=== PATIENT | female | born 1965 | race Caucasian/White ===

== ENCOUNTER 2022-08-20 10:15 | Observation (INO) | payer OTHER ==
[2022-08-20 13:40] LABS: Bilirubin Neg (Negative); Blood, Urine 10 (Negative); Clarity Clear (Clear); Glucose, Urine (Dipstick) Normal (Negative); Ketone, Urine Negative (Negative); Leukocyte 100 (Negative); Nitrite Negative (Negative); Protein, Urine (Dipstick) Negative (Neg-Trace); Specific Gravity, Urine 1.015 (1.005-1.030); Urobilinogen Normal mg/dL (Less than 2)
[2022-08-20 13:46] LABS: #Basophils 0.1 10x3/uL (0.0-0.2); #Eosinphils 0.1 10x3/uL (0.0-0.5); #Monocytes 0.6 10x3/uL (0.0-1.1); #Neutrophils 3.8 10x3/uL (1.5-8.4); %Basophils 1.2 % (0.0-2.0); %Eosinophils 2.1 % (0.0-6.0); %Lymphocytes 28.4 % (18.0-47.0); %Monocytes 9.2 % (0.0-10.0); %Neutrophils 58.5 % (40.0-75.0); Hemoglobin 14.1 g/dL (12.0-15.5); Mean Corpuscular HGB CONC 34.4 g/dL (32.0-36.0); Mean Corpuscular Hemoglobin 31.5 pg (27.0-33.0); Mean Corpuscular Volume 91.7 fl (81.6-98.3); Mean Platelet Volume 9.4 fl (7.4-10.4); Platelet Count 315 10x3/uL (150-450); RBC Distribution Width 12.5 % (11.5-14.5); Red Blood Cell (RBC) Count 4.47 10x6/uL (3.90-5.03); White Blood Cell (WBC) Count 6.5 10x3/uL (3.5-10.5)
[2022-08-20 14:05] LABS: INR-International Normal Ratio 0.9
[2022-08-20 14:11] LABS: Anion Gap 16 mmol/L (10-20); BUN (Urea Nitrogen) 13 mg/dL (9.8-20.1); Calc. Creatinine Clearance 0 mL/min (70-130); Calcium 9.5 mg/dL (7.8-10.44); Carbon Dioxide 24 mmol/L (22-29); Chloride 103 mmol/L (98-107); Estimated GFR 97; Glucose 114 mg/dL (70-105); Potassium 4.1 mmol/L (3.5-5.1); Sodium 139 mmol/L (136-145)
[2022-08-25] MEDS ORDERED: Vancomycin (BATCH) 1.5 GRAM/300 ML BAG ONE (07:10)
[2022-08-25] MEDS ORDERED: Tranexamic Acid 1,000 MG/10 ML VIAL ONE ×2 (07:10→12:35)
[2022-08-25] MEDS ORDERED: Sodium Chloride 0.9% 100 ML ONE ×2 (07:10→09:31)
[2022-08-25 08:33] LABS: SARS-CoV-2 NAA Rapid Test Not Detected (NotDetected)
[2022-08-25] MEDS ORDERED: Fentanyl 100 MCG/2 ML VIAL ONE (08:34)
[2022-08-25] MEDS ORDERED: Ropivacaine 0.5% HCl/PF (150 MG/30 ML VIAL) ONE ×2 (08:34→10:08)
[2022-08-25] MEDS ORDERED: Midazolam HCl 2 mg/2 ml Vial ONE (08:34)
[2022-08-25] MEDS ORDERED: Ondansetron PF 4 MG/2 ML Vial ONE ×2 (08:34→10:08)
[2022-08-25] MEDS ORDERED: Scopolamine 1.5 mg/72 hour Patch ONE (08:47)
[2022-08-25] MEDS ORDERED: CEFAZOLIN 2 GM VIAL ONE (09:31)
[2022-08-25] MEDS ORDERED: Bupivacaine 0.25% HCL 30 ML VIAL ONE (09:31)
[2022-08-25] MEDS ORDERED: Fentanyl 100 MCG/2 ML VIAL IV PRN (10:02)
[2022-08-25] MEDS ORDERED: Dexamethasone 20 MG/5 ML VIAL ONE (10:08)
[2022-08-25] MEDS ORDERED: Ketorolac Tromethamine 30 MG/ML VIAL ONE (10:08)
[2022-08-25] MEDS ORDERED: ePHEDrine 50 MG/ML VIAL ONE (10:08)
[2022-08-25] MEDS ORDERED: PROPOFOL 200 MG/20 ML VIAL ONE (10:08)
[2022-08-25] MEDS ORDERED: Promethazine HCl 25 MG/ML VIAL IM PRN ×3 (10:10→10:59)
[2022-08-25] MEDS ORDERED: diphenhydrAMINE 25 MG CAP PO PRN (10:10)
[2022-08-25] MEDS ORDERED: Acetaminophen 325 MG TAB PO PRN (10:10)
[2022-08-25] MEDS ORDERED: Ondansetron PF 4 MG/2 ML Vial IVP PRN ×2 (10:10→10:15)
[2022-08-25] MEDS ORDERED: Zolpidem Tartrate 5 MG TAB PO PRN ×2 (10:10→10:15)
[2022-08-25] MEDS ORDERED: fentaNYL PF 100 MCG/2 ML SYRINGE ONE (10:14)
[2022-08-25] MEDS ORDERED: Tranexamic Acid 1,000 MG in Sodium Chloride 0.9% 100 ML IVPB SCH (10:15)
[2022-08-25] MEDS ORDERED: traMADol HCl 50 MG TAB PO PRN ×2 (10:15)
[2022-08-25] MEDS ORDERED: Ropivacaine 0.2% 550 ML 550 ML NERVE BLCK SCH (10:15)
[2022-08-25] MEDS ORDERED: Meperidine HCl/PF 25 MG/ML VIAL SLOW IVP PRN (10:59)
[2022-08-25] MEDS ORDERED: HYDROmorphone 2 MG/ML VIAL SLOW IVP PRN (10:59)
[2022-08-25] MEDS ORDERED: Promethazine HCl 25 MG/ML VIAL IVPB PRN (10:59)
[2022-08-25] MEDS ORDERED: FENTANYL 50 MCG/ML 1 ML VIAL ONE (12:05)
[2022-08-25] MEDS ORDERED: HYDROmorphone 0.5 MG/0.5 ML SYRINGE ONE ×2 (12:20→12:36)
[2022-08-25] MEDS ORDERED: HYDROmorphone 2 MG/ML VIAL ONE (12:36)
[2022-08-25 13:54] VITALS: BMI 31.8
[2022-08-25] MEDS: Ketorolac Tromethamine 30 MG/ML VIAL IVP SCH ×2 (14:18→17:19)
[2022-08-25] MEDS: Sodium Chloride 0.9% 1,000 ML IV SCH (14:19)
[2022-08-25] MEDS: HYDROcodone/Acetaminophen 10/325 mg Tablet PO PRN ×3 (14:19→22:54)
[2022-08-25] MEDS ORDERED: Fluticasone Propionate Nasal Spray 16 gm Bottle NASAL PRN (15:48)
[2022-08-25] MEDS: CEFAZOLIN 2 GM in Sodium Chloride 0.9% 100 ML IVPB SCH (17:19)
[2022-08-25] MEDS ORDERED: Vancomycin HCl 1.5 GM in Sodium Chloride 0.9% 250 ML 300 ML IVPB SCH (19:00)
[2022-08-25] MEDS: Ferrous Gluconate 324 MG TAB PO SCH (21:47)
[2022-08-25] MEDS: Senokot S 8.6-50 MG TAB PO SCH (21:47)
[2022-08-25] MEDS: Aspirin 81 mg Enteric Coated Tablet PO SCH (21:47)
[2022-08-26] MEDS: Ketorolac Tromethamine 30 MG/ML VIAL IVP SCH ×4 (00:07→17:59)
[2022-08-26] MEDS: Sodium Chloride 0.9% 1,000 ML IV SCH ×3 (00:08→16:33)
[2022-08-26] MEDS: CEFAZOLIN 2 GM in Sodium Chloride 0.9% 100 ML IVPB SCH (01:57)
[2022-08-26] MEDS: HYDROcodone/Acetaminophen 10/325 mg Tablet PO PRN ×5 (02:47→20:26)
[2022-08-26 05:24] LABS: Hemoglobin 11.3 g/dL (12.0-16.0); Mean Corpuscular HGB CONC 34.1 g/dL (32.0-36.0); Mean Corpuscular Hemoglobin 33.4 pg (27.0-31.0); Mean Corpuscular Volume 97.8 fl (78.0-98.0); Mean Platelet Volume 7.6 fL (7.4-10.4); Platelet Count 242 thou/uL (130-400); RBC Distribution Width 11.6 % (11.5-14.5); Red Blood Cell (RBC) Count 3.39 mill/uL (4.20-5.40); White Blood Cell (WBC) Count 12.6 thou/uL (4.8-10.8)
[2022-08-26] MEDS: Senokot S 8.6-50 MG TAB PO SCH ×2 (08:22→20:26)
[2022-08-26] MEDS: Aspirin 81 mg Enteric Coated Tablet PO SCH ×2 (08:23→20:26)
[2022-08-26] MEDS: Multivitamin W/ Minerals 1 TAB PO SCH (08:23)
[2022-08-26] MEDS: Loratadine 10 MG TAB PO SCH (08:23)
[2022-08-26] MEDS: Ferrous Gluconate 324 MG TAB PO SCH ×2 (08:24→20:26)
[2022-08-26] MEDS: Valsartan 80 MG TAB PO SCH (08:27)
[2022-08-26] MEDS: Hydrochlorothiazide 25 MG TAB PO SCH (08:27)
[2022-08-26] MEDS ORDERED: Calcium Carbonate 600 MG TAB PO SCH (09:00)
[2022-08-26] MEDS ORDERED: Cholecalciferol 1,000 UNITS (25 MCG) TAB PO SCH (09:00)
[2022-08-26] MEDS ORDERED: Rosuvastatin 5 MG TAB PO SCH (09:00)
[2022-08-26] MEDS ORDERED: Escitalopram Oxalate 20 mg Tablet PO SCH (09:00)
[2022-08-27] MEDS: HYDROcodone/Acetaminophen 10/325 mg Tablet PO PRN ×3 (00:25→09:45)
[2022-08-27] MEDS: Ketorolac Tromethamine 30 MG/ML VIAL IVP SCH ×2 (00:25→05:20)
[2022-08-27] MEDS: Sodium Chloride 0.9% 1,000 ML IV SCH (03:48)
[2022-08-27] MEDS ORDERED: Fluticasone Propionate Nasal Spray 16 gm Bottle NASAL PRN ×2 (06:08→06:12)
[2022-08-27 06:52] LABS: Hemoglobin 9.4 g/dL (12.0-16.0); Mean Corpuscular Hemoglobin 32.4 pg (27.0-31.0); Mean Corpuscular Volume 98.2 fl (78.0-98.0); Mean Platelet Volume 7.6 fL (7.4-10.4); Platelet Count 204 thou/uL (130-400); RBC Distribution Width 11.8 % (11.5-14.5); White Blood Cell (WBC) Count 8.1 thou/uL (4.8-10.8)
[2022-08-27] MEDS ORDERED: Escitalopram Oxalate 20 mg Tablet PO SCH (09:00)
[2022-08-27] MEDS ORDERED: Cholecalciferol 1,000 UNITS (25 MCG) TAB PO SCH ×2 (09:00)
[2022-08-27] MEDS ORDERED: Cetirizine HCl 10 MG TAB PO SCH (09:00)
[2022-08-27] MEDS ORDERED: Calcium Carbonate 600 MG TAB PO SCH (09:00)
[2022-08-27] MEDS ORDERED: Rosuvastatin 5 MG TAB PO SCH (09:00)
[2022-08-27] MEDS: Valsartan 80 MG TAB PO SCH (09:39)
[2022-08-27] MEDS: Hydrochlorothiazide 25 MG TAB PO SCH (09:40)
[2022-08-27] MEDS: Multivitamin W/ Minerals 1 TAB PO SCH (09:40)
[2022-08-27] MEDS: Ferrous Gluconate 324 MG TAB PO SCH (09:40)
[2022-08-27] MEDS: Senokot S 8.6-50 MG TAB PO SCH (09:41)
[2022-08-27] MEDS: Loratadine 10 MG TAB PO SCH (09:41)
[2022-08-27] MEDS: Aspirin 81 mg Enteric Coated Tablet PO SCH (09:41)
[2022-08-27 12:04] VITALS: BP 105/69; TEMP 98.2
== END 2022-08-27 12:06 | disposition home or self-care (01) ==
LOC: INTOOBSV 08-25 06:10 → SURG A 08-25 06:10 → SURG B 08-25 14:19
PROVIDERS: ADMIT Orthopaedic Surgery; ATTEND Orthopaedic Surgery
PROC: 0SRC0J9 Replacement of Right Knee Joint with Synthetic Substitute, Cemented, Open Approach (ICD-10-PCS; principal; 2022-08-25)
DX: M17.11 Unilateral primary osteoarthritis, right knee (principal); E78.5 Hyperlipidemia, unspecified; I10 Essential (primary) hypertension; Z87.891 Personal history of nicotine dependence; Z79.899 Other long term (current) drug therapy; Z20.822 Contact with and (suspected) exposure to COVID-19
CPT/HCPCS: 36415; 80048; 81003; 85025; 85027; 85610; 86850; 86900; 86901; 87081; 96374; 96375; 96376; A4306; C1713; C1776; G0378; J1100; J1170; J1885; J2250; J2405; J2704; J2795; J3010; J3370; J3490; J7050; S0020; U0002

== ENCOUNTER 2022-08-20 12:53 | Outpatient (CLI) | payer OTHER | END 2022-08-20 12:54 | disposition home or self-care (01) | LOC: LABBT 12:53 | PROVIDERS: ATTEND Orthopaedic Surgery | DX: Z01.818 Encounter for other preprocedural examination (principal); M17.11 Unilateral primary osteoarthritis, right knee | CPT/HCPCS: 71046; 93005; 93010 ==

== ENCOUNTER 2025-05-21 07:06 | Observation (INO) | payer BC ==
[2025-05-21 07:38] LABS: #Basophils 0.07 10x3/uL (0.0-0.2); #Eosinophils 0.55 10x3/uL (0.0-0.7); #Monocytes 0.81 10x3/uL (0.11-0.59); #Neutrophils 8.82 10x3/uL (1.40-6.50); %Basophils 0.6 % (0.0-1.0); %Eosinophils 4.9 % (0.0-10.0); %Lymphocytes 9.2 % (21.0-51.0); %Monocytes 7.1 % (0.0-10.0); %Neutrophils 77.8 % (42.0-75.0); Hematocrit 31.8 % (36.0-47.0); Hemoglobin 11.4 g/dL (12.0-16.0); Mean Corpuscular Hemoglobin 31.7 pg (27.0-31.0); Mean Corpuscular Volume 88.3 fL (78.0-98.0); Platelet Count 306 10x3/uL (130-400); Red Blood Cell (RBC) Count 3.60 mill/uL (4.20-5.40); White Blood Cell (WBC) Count 11.34 10x3/uL (4.8-10.8)
[2025-05-21] MEDS ORDERED: Magnesium 2 GM/50 ML BAG (IN WATER) ONE (07:54)
[2025-05-21] MEDS ORDERED: Pantoprazole 40 MG VIAL ONE (07:54)
[2025-05-21] MEDS ORDERED: Famotidine/PF 20 mg/2ml Vial ONE (07:54)
[2025-05-21 08:06] LABS: Troponin I Less than 0.010 ng/mL (< 0.028)
[2025-05-21 08:15] LABS: ALT (SGPT) 21 U/L (Less than 34); AST (SGOT) 26 U/L (11-34); Albumin 3.7 g/dL (3.1-4.5); Alkaline Phosphatase 136 U/L (40-110); Anion Gap 14 mmol/L (10-20); BUN (Urea Nitrogen) 12 mg/dL (9.8-20.1); Bilirubin, Total 0.8 mg/dL (0.3-1.2); Calc. Creatinine Clearance 0 mL/min (70-130); Calcium 8.6 mg/dL (7.8-10.44); Carbon Dioxide 20 mmol/L (22-29); Chloride 99 mmol/L (98-107); Globulin 3.0 g/dL (2.4-3.5); Glucose 128 mg/dL (70-105); Lipase 20 U/L (8-78); Magnesium 1.5 mg/dL (1.6-2.6); Potassium 2.6 mmol/L (3.5-5.1); Sodium 130 mmol/L (136-145)
[2025-05-21] MEDS ORDERED: NS 0.9% w/ 20 MEQ KCL 0 ML ONE (08:54)
[2025-05-21] MEDS ORDERED: Potassium Chloride 20 MEQ (100 mL) BAG ONE (08:56)
[2025-05-21] MEDS ORDERED: Iopamidol 370 76% 100 ML VIAL ONE (09:26)
[2025-05-21] MEDS ORDERED: Calcium Carbonate 500 MG ChewTAB PO PRN (09:47)
[2025-05-21] MEDS ORDERED: Senokot S 8.6-50 MG TAB PO PRN (09:47)
[2025-05-21] MEDS ORDERED: NS 0.9% w/ 20 MEQ KCL 1,000 ML/1,000 ML BAG IV SCH (10:00)
[2025-05-21 11:35] VITALS: BMI 29.0
[2025-05-21] MEDS: Potassium Chloride 20 MEQ in Premix 1 BAG IVPB SCH (11:36)
[2025-05-21 11:42] LABS: Glucose, Urine (Dipstick) Normal (Negative); Leukocyte Negative Leu/uL (Negative); Protein, Urine (Dipstick) Negative (Neg-Trace)
[2025-05-21 11:43] LABS: Specific Gravity, Urine Greater than 1.050 (1.002-1.036)
[2025-05-21 11:49] LABS: Cocaine Metabolite Screen Negative (Negative); THC/Cannabinoid Screen Negative (Negative); Tricyclic Screen Negative (Negative)
[2025-05-21] MEDS: Acetaminophen 325 MG TAB PO PRN (13:12)
[2025-05-21] MEDS: NS 0.9% w/ 40 MEQ KCL 1,000 ML IV SCH (13:13)
[2025-05-21 14:39] LABS: Magnesium 2.2 mg/dL (1.6-2.6); Potassium 3.4 mmol/L (3.5-5.1)
[2025-05-21] MEDS: Aspirin 81 mg Enteric Coated Tablet PO SCH (20:42)
[2025-05-21] MEDS: Famotidine 20 MG TAB PO SCH (20:42)
[2025-05-21] MEDS: Melatonin 3 MG TAB PO PRN (20:42)
[2025-05-21] MEDS: Cyclobenzaprine 10 MG TAB PO PRN (20:42)
[2025-05-21] MEDS: Famotidine/PF 20 mg/2ml Vial SLOW IVP SCH (20:43)
[2025-05-22 05:32] LABS: #Basophils 0.06 10x3/uL (0.0-0.2); #Eosinophils 0.54 10x3/uL (0.0-0.7); #Monocytes 0.67 10x3/uL (0.11-0.59); #Neutrophils 5.50 10x3/uL (1.40-6.50); %Basophils 0.7 % (0.0-1.0); %Eosinophils 6.3 % (0.0-10.0); %Lymphocytes 20.8 % (21.0-51.0); %Monocytes 7.8 % (0.0-10.0); %Neutrophils 64.2 % (42.0-75.0); Hematocrit 32.3 % (36.0-47.0); Hemoglobin 11.1 g/dL (12.0-16.0); Mean Corpuscular Hemoglobin 32.1 pg (27.0-31.0); Mean Corpuscular Volume 93.4 fL (78.0-98.0); Platelet Count 260 10x3/uL (130-400); Red Blood Cell (RBC) Count 3.46 mill/uL (4.20-5.40); White Blood Cell (WBC) Count 8.57 10x3/uL (4.8-10.8)
[2025-05-22 06:04] LABS: ALT (SGPT) 21 U/L (Less than 34); AST (SGOT) 23 U/L (11-34); Albumin 3.5 g/dL (3.1-4.5); Alkaline Phosphatase 126 U/L (40-110); Anion Gap 11 mmol/L (10-20); BUN (Urea Nitrogen) 9 mg/dL (9.8-20.1); Bilirubin, Total 0.6 mg/dL (0.3-1.2); Calc. Creatinine Clearance 154 mL/min (70-130); Calcium 8.2 mg/dL (7.8-10.44); Carbon Dioxide 18 mmol/L (22-29); Chloride 110 mmol/L (98-107); Globulin 2.8 g/dL (2.4-3.5); Glucose 105 mg/dL (70-105); Magnesium 2.0 mg/dL (1.6-2.6); Potassium 3.8 mmol/L (3.5-5.1); Sodium 135 mmol/L (136-145)
[2025-05-22] MEDS: Rosuvastatin 5 MG TAB PO SCH (09:29)
[2025-05-22] MEDS: Enoxaparin 40 MG (0.4 mL) SYRINGE SC SCH (09:29)
[2025-05-22] MEDS: Valsartan 80 MG TAB PO SCH (09:29)
[2025-05-22] MEDS ORDERED: Cyclobenzaprine 10 MG TAB PO PRN (10:50)
[2025-05-22 12:03] VITALS: TEMP 97.3
[2025-05-22] MEDS: HYDROcodone/Acetaminophen 10/325 mg Tablet PO PRN (12:28)
[2025-05-22 12:49] VITALS: BMI 29.0
[2025-05-22 13:54] VITALS: BP 120/55
== END 2025-05-22 15:00 | disposition home or self-care (01) ==
LOC: ERS 07:06 → 2NO 09:38
PROVIDERS: ADMIT Hospitalist; ATTEND Family Medicine
DX: E87.6 Hypokalemia (principal); E78.5 Hyperlipidemia, unspecified; E87.1 Hypo-osmolality and hyponatremia; E86.1 Hypovolemia; E83.42 Hypomagnesemia; E66.9 Obesity, unspecified; I10 Essential (primary) hypertension; F10.10 Alcohol abuse, uncomplicated; Y90.0 Blood alcohol level of less than 20 mg/100 ml; Z68.42 Body mass index [BMI] 45.0-49.9, adult; Z96.652 Presence of left artificial knee joint; Z90.49 Acquired absence of other specified parts of digestive tract; Z90.89 Acquired absence of other organs; Z90.710 Acquired absence of both cervix and uterus; Z79.899 Other long term (current) drug therapy
CPT/HCPCS: 36415; 70450; 70496; 70498; 80053; 80306; 80307; 81003; 83690; 83735; 84100; 84484; 85025; 93005; 96372; 96374; 96375; 96376; G0378; J1308; J1650; J2470; J3475; J3480; Q9967

== ENCOUNTER 2025-06-07 11:55 | Inpatient (IN) | payer BC ==
[2025-06-06 11:40] VITALS: BMI 29.2
[2025-06-07] MEDS ORDERED: CEFAZOLIN 2 GM VIAL ONE (12:51)
[2025-06-07] MEDS ORDERED: Vancomycin 1 GM/200 ML (FROZEN) BAG ONE (12:51)
[2025-06-07] MEDS ORDERED: Bupivacaine 0.25% HCL 30 ML VIAL ONE (14:17)
[2025-06-07] MEDS ORDERED: PROPOFOL 60 ML ONE (14:48)
[2025-06-07] MEDS ORDERED: fentaNYL PF 100 MCG/2 ML SYRINGE ONE (14:48)
[2025-06-07] MEDS ORDERED: PHENYLEPHRINE-NS 100 MCG/ML 10 ML SYRINGE ONE (15:05)
[2025-06-07] MEDS ORDERED: Ondansetron PF 4 MG/2 ML Vial ONE (15:40)
[2025-06-07] MEDS ORDERED: Ketorolac Tromethamine 30 MG (1 mL) VIAL ONE (15:55)
[2025-06-07] MEDS ORDERED: diphenhydrAMINE 25 MG CAP PO PRN (15:59)
[2025-06-07] MEDS ORDERED: Ondansetron PF 4 MG/2 ML Vial IVP PRN (15:59)
[2025-06-07] MEDS ORDERED: Famotidine 20 MG TAB PO PRN (16:01)
[2025-06-07] MEDS ORDERED: HYDROmorphone 0.5 MG/0.5 ML SYRINGE ONE (16:11)
[2025-06-07 16:21] LABS: RBC Count-Automated (BF) Greater than 890000 /cu.mm; WBC/Nucleated-Auto (BF) 716 /cu.mm
[2025-06-07 16:39] LABS: Fluid, Glucose 58.0 mg/dL (Not Available); Fluid, Protein 6.2 g/dL (Not Available)
[2025-06-07 17:20] LABS: BF Segmented Neutrophils 91 %; Cell Count Non Hematic 6 %
[2025-06-07] MEDS: HYDROcodone/Acetaminophen 10/325 mg Tablet PO PRN (17:22)
[2025-06-07] MEDS ORDERED: Aspirin 81 mg Enteric Coated Tablet PO SCH (21:00)
[2025-06-07] MEDS: Senokot S 8.6-50 MG TAB PO SCH (21:12)
[2025-06-07] MEDS: Ferrous Gluconate 324 MG TAB PO SCH (21:13)
[2025-06-07] MEDS: Aspirin 81 mg Enteric Coated Tablet PO SCH (21:14)
[2025-06-07] MEDS: Ketorolac Tromethamine 30 MG (1 mL) VIAL IVP SCH (21:15)
[2025-06-08] MEDS: Acetaminophen 325 MG TAB PO PRN (04:05)
[2025-06-08 06:05] LABS: Hematocrit 31.2 % (36.0-47.0); Hemoglobin 9.8 g/dL (12.0-16.0); Mean Corpuscular Hemoglobin 30.2 pg (27.0-31.0); Mean Corpuscular Volume 96.3 fL (78.0-98.0); Platelet Count 468 10x3/uL (130-400); Red Blood Cell (RBC) Count 3.24 mill/uL (4.20-5.40); White Blood Cell (WBC) Count 5.31 10x3/uL (4.8-10.8)
[2025-06-08 06:20] LABS: Anion Gap 13 mmol/L (10-20); BUN (Urea Nitrogen) 10 mg/dL (9.8-20.1); Calc. Creatinine Clearance 141 mL/min (70-130); Calcium 8.2 mg/dL (7.8-10.44); Carbon Dioxide 22 mmol/L (22-29); Chloride 106 mmol/L (98-107); Glucose 98 mg/dL (70-105); Potassium 3.5 mmol/L (3.5-5.1); Sodium 137 mmol/L (136-145)
[2025-06-08] MEDS: Rosuvastatin 5 MG TAB PO SCH (08:27)
[2025-06-08] MEDS: Multivitamin W/ Minerals 1 TAB PO SCH (08:27)
[2025-06-08] MEDS: Valsartan 80 MG TAB PO SCH (08:32)
[2025-06-08] MEDS ORDERED: Multivitamin W/ Minerals 1 TAB PO SCH (09:00)
[2025-06-08] MEDS: HYDROcodone/Acetaminophen 10/325 mg Tablet PO PRN (09:37)
[2025-06-08 12:38] VITALS: BMI 29.2
[2025-06-09 05:24] LABS: Hematocrit 32.8 % (36.0-47.0); Hemoglobin 10.1 g/dL (12.0-16.0); Mean Corpuscular Hemoglobin 29.8 pg (27.0-31.0); Mean Corpuscular Volume 96.8 fL (78.0-98.0); Platelet Count 500 10x3/uL (130-400); Red Blood Cell (RBC) Count 3.39 mill/uL (4.20-5.40); White Blood Cell (WBC) Count 4.66 10x3/uL (4.8-10.8)
[2025-06-09 11:55] VITALS: BP 103/63; TEMP 98.2
== END 2025-06-09 17:30 | disposition home health service (06) | DRG 560 ==
LOC: SDC 11:55 → OBSVTOIN 15:59 → SURG B 15:59
PROVIDERS: ADMIT Orthopaedic Surgery; ATTEND Orthopaedic Surgery
PROC: 0S9D3ZZ Drainage of Left Knee Joint, Percutaneous Approach (ICD-10-PCS; principal; 2025-06-07)
DX: T84.54XA Infection and inflammatory reaction due to internal left knee prosthesis, initial encounter (principal); M00.9 Pyogenic arthritis, unspecified; Y83.2 Surgical operation with anastomosis, bypass or graft as the cause of abnormal reaction of the patient, or of later complication, without mention of misadventure at the time of the procedure; Z96.652 Presence of left artificial knee joint
CPT/HCPCS: 36415; 80048; 82945; 84157; 85027; 85060; 86141; 87070; 87205; 89051; 89060; 97139; J0665; J1171; J1885; J2250; J2405; J2704; J3010; J3373; J7030